=== PATIENT | male | born 1965 | race Caucasian/White ===

== ENCOUNTER 2016-09-24 12:11 | Observation (INO) | payer OTHER ==
[~2016-09-24] VITALS: Ht 177.8 cm; Wt 90.0 kg
[~2016-09-24 12:11] MED LIST: ALLO100T PO; ATOR1TAB18 PO; COUM4TAB PO; TETA1INJ4 IM; TRAZ100T4 PO; WARF-60 PO
[2016-09-24 12:24] VITALS: BP 128/92; PULSE 120; RESP 20; TEMP 102.3; O2SAT 95
[2016-09-24] MEDS ORDERED: AZITHROMYCIN INJ 500 MG in SODIUM CHLOR 0.9% 250 ML INJ 250 ML IV STA (12:35)
[2016-09-24] MEDS ORDERED: SODIUM CHLOR 0.9% 1000 ML INJ 1,000 ML IV ONE ×2 (12:35)
[2016-09-24] MEDS ORDERED: cefTRIAXone INJ 2,000 MG in SODIUM CHLORIDE 0.9% INJ 100 ML IV STA (12:35)
[2016-09-24 12:46] VITALS: O2SAT 95
[2016-09-24 12:54] LABS: AUTOMATED NEUTROPHIL # 7.8 TH/MM3 (1.8-7.7); BASOPHIL % 0.5 % (0.0-2.0); HEMATOCRIT 46.9 % (39.0-51.0); HEMO FLAGS DIFF FINAL; LYMPH % 7.9 % (9.0-44.0); LYMPHOCYTE # 0.8 TH/MM3 (1.0-4.8); MEAN CELL VOLUME 93.5 FL (80.0-100.0); MEAN CORPUSCULAR HEMOGLOBIN 31.2 PG (27.0-34.0); MEAN CORPUSCULAR HGB CONC 33.4 % (32.0-36.0); MONO % 9.9 % (0.0-8.0); NEUT % 81.7 % (16.0-70.0); PLATELET COUNT 254 TH/MM3 (150-450); RED BLOOD COUNT 5.02 MIL/MM3 (4.50-5.90); RED CELL DISTRIBUTION WIDTH 12.4 % (11.6-17.2); WHITE BLOOD COUNT 9.6 TH/MM3 (4.0-11.0)
--- NOTE | 2016-09-24 13:02 | RADHPO ---
EXAM DATE/TIME: 09/24/2016 12:48 [place] COMPARISON: No previous studies available for comparison. INDICATIONS : Short of breath MEDICAL HISTORY : None. SURGICAL HISTORY : None. ENCOUNTER: Initial ACUITY: 2 days PAIN SCORE: 2/10 LOCATION: Bilateral chest FINDINGS: A single view of the chest demonstrates the lungs to be symmetrically aerated without evidence of mas s, infiltrate or effusion. The cardiomediastinal contours are unremarkable. Osseous structures are intact. CONCLUSION: 1. No acute cardiopulmonary disease. Xander Patel MD on September 24, 2016 at 13:01 Board Certified Radiologist. This report was verified electronically.
[2016-09-24 13:03] LABS: CHLORIDE 102 MEQ/L (98-107); POTASSIUM 3.9 MEQ/L (3.5-5.1); SODIUM (NA) 139 MEQ/L (136-145)
[2016-09-24 13:07] LABS: ANION GAP 9 MEQ/L (5-15); BLOOD UREA NITROGEN 9 MG/DL (7-18); MAGNESIUM 1.7 MG/DL (1.5-2.5)
[2016-09-24 13:08] VITALS: BP 128/92; PULSE 113; RESP 17; TEMP 102.3; O2SAT 96
[2016-09-24 13:08] LABS: APTT (PATIENT) 44.3 SEC (24.3-30.1); INTERNATIONAL NORMALIZED RATIO 1.7 RATIO; PROTHROMBIN TIME - PATIENT 19.2 SEC (9.8-11.6)
[2016-09-24 13:10] LABS: ALT (GPT) 23 U/L (12-78); AST (GOT) 50 U/L (15-37); GLOMERULAR FILTRATION RATE 89 ML/MIN (>89)
[2016-09-24 13:11] LABS: TOTAL BILIRUBIN ADULT 0.6 MG/DL (0.2-1.0)
[2016-09-24 13:13] LABS: ALKALINE PHOSPHATASE 89 U/L (45-117)
[2016-09-24 13:25] LABS: CREATINE KINASE 1480 U/L (39-308)
[2016-09-24 13:38] LABS: CKMB 1.6 NG/ML (0.5-3.6)
[2016-09-24] MEDS ORDERED: OSELTAMIVIR PHOSPHATE 75 MG CAP PO ONE ×2 (14:00→18:30)
[2016-09-24] MEDS ORDERED: IBUPROFEN 600 MG TAB PO ONE (14:00)
[2016-09-24] MEDS ORDERED: ACETAMINOPHEN 325 MG TAB PO ONE (14:00)
[2016-09-24 14:40] VITALS: BP 126/70; PULSE 102; RESP 17; TEMP 99.6; O2SAT 93
--- NOTE | 2016-09-24 15:45 | PD ---
HPI Chief Complaint: Cold / Flu Symptoms Time Seen by Provider: 12:31 Travel History International Travel<30 days: No Contact w/Intl Traveler<30days: No Traveled to known affect area: No History of Present Illness HPI 51-year-old male presents with cough and congestion over the past 3 days. He went to an urgent care who referred him here given his oxygen saturation initially was 88%. He states that he aches all over and is been running fever. He states he did not get a flu shot this year. He denies other concurrent complaints. He states he last had his INR checked a couple weeks ago and it was 2.1. He states he is on this for prior strokes. Quality is achy. Severity is all over. PFSH Past Medical History Hx Anticoagulant Therapy: Yes (WARAFIN) Arthritis: Yes (KNEES, ANKLES, ELBOWS) Cardiovascular Problems: Yes High Cholesterol: Yes Chest Pain: Yes Cerebrovascular Accident: Yes (AUG 2014 RIGHT FINGER NUMBNESS) Diminished Hearing: No Gastrointestinal Disorders: Yes Genitourinary: No Hiatal Hernia: Yes Hypertension: No Implanted Vascular Access Dvce: No Musculoskeletal: Yes (GOUT IN SHOULDER) Neurologic: Yes (CVA 2014) Respiratory: Yes (SMOKERS COUGH, ) Immunizations Current: Yes Myocardial Infarction: Yes Seizures: Yes (QUESTIONABLE IN THE PAST) Tetanus Vaccination: < 5 Years Influenza Vaccination: Yes Past Surgical History Abdominal Surgery: Yes (UMBILICIAL HERNIA, 20 YEARS AGO) Oral Surgery: Yes (IMPLANTED TOOTH) Other Surgery: Yes Social History Alcohol Use: Yes (OCC BEER) Tobacco Use: No (QUIT 09/2016) Substance Use: No Allergies-Medications (Allergen,Severity, Reaction): Coded Allergies: No Known Allergies (Verified , 09/24/16) Reported Meds & Prescriptions Reported Meds & Active Scripts Active Atorvastatin (Atorvastatin Calcium) 80 Mg Tab 80 Mg PO HS Warfarin 6 Mg Tab 6 Mg PO DAILY Reported Trazodone (Trazodone HCl) 100 Mg Tab 100 Mg PO TID Coumadin (Warfarin) 4 Mg Tab 4 Mg PO DAILY Allopurinol 100 Mg Tab 100 Mg PO DAILY Review of Systems Except as stated in HPI: all other systems reviewed are Neg Physical Exam Narrative GENERAL: Well-nourished, well-developed patient. SKIN: Warm and dry. HEAD: Normocephalic and atraumatic. EYES: No injection or drainage. ENT: No nasal drainage noted. NECK: Supple, trachea midline. CARDIOVASCULAR: Regular rate and rhythm RESPIRATORY: Breath sounds equal bilaterally at apices. No accessory muscle use. GASTROINTESTINAL: Abdomen soft, non-tender, nondistended. EXTREMITIES: No edema. NEUROLOGICAL: Awake and alert. Motor and sensory grossly within normal limits. Normal speech. Data Data Last Documented VS Vital Signs Date Time Temp Pulse Resp B/P Pulse Ox O2 Delivery O2 Flow Rate FiO2 09/24/16 13:08 102.3 113 17 128/92 96 Nasal Cannula 2 Orders Electrocardiogram (09/24/16 12:35) Complete Blood Count With Diff (09/24/16 12:35) Comprehensive Metabolic Panel (09/24/16 12:35) Prothrombin Time / Inr (Pt) (09/24/16 12:35) Act Partial Throm Time (Ptt) (09/24/16 12:35) Lactic Acid Sepsis Protocol (09/24/16 12:35) Magnesium (Mg) (09/24/16 12:35) Phosphorus (Po4) (09/24/16 12:35) Ckmb (Isoenzyme) Profile (09/24/16 12:35) Troponin I (09/24/16 12:35) Urinalysis - C+S If Indicated (09/24/16 12:35) Influenzae A/B Antigen (09/24/16 12:35) Blood Culture (09/24/16 12:35) Chest, Single Ap (09/24/16 12:35) Blood Glucose (09/24/16 12:35) Ecg Monitoring (09/24/16 12:35) Iv Access Insert/Monitor (09/24/16 12:35) Oximetry (09/24/16 12:35) Oxygen Administration (09/24/16 12:35) Ceftriaxone Inj (Rocephin Inj) (09/24/16 12:35) Azithromycin Inj (Zithromax Inj) (09/24/16 12:35) Sodium Chlor 0.9% 1000 Ml Inj (Ns 1000 M (09/24/16 12:35) Sodium Chlor 0.9% 1000 Ml Inj (Ns 1000 M (09/24/16 12:35) CKMB (09/24/16 12:40) CKMB% (09/24/16 12:40) Oseltamivir (Tamiflu) (09/24/16 14:00) Acetaminophen (Tylenol) (09/24/16 14:00) Ibuprofen (Motrin) (09/24/16 14:00) Admit Order (Ed Use Only) (09/24/16 13:54) Labs Laboratory Tests Test 09/24/16 12:40 White Blood Count 9.6 TH/MM3 Red Blood Count 5.02 MIL/MM3 Hemoglobin 15.7 GM/DL Hematocrit 46.9 % Mean Corpuscular Volume 93.5 FL Mean Corpuscular Hemoglobin 31.2 PG Mean Corpuscular Hemoglobin 33.4 % Concent Red Cell Distribution Width 12.4 % Platelet Count 254 TH/MM3 Mean Platelet Volume 7.2 FL Neutrophils (%) (Auto) 81.7 % Lymphocytes (%) (Auto) 7.9 % Monocytes (%) (Auto) 9.9 % Eosinophils (%) (Auto) 0.0 % Basophils (%) (Auto) 0.5 % Neutrophils # (Auto) 7.8 TH/MM3 Lymphocytes # (Auto) 0.8 TH/MM3 Monocytes # (Auto) 1.0 TH/MM3 Eosinophils # (Auto) 0.0 TH/MM3 Basophils # (Auto) 0.0 TH/MM3 CBC Comment DIFF FINAL Differential Comment Prothrombin Time 19.2 SEC Prothromb Time International 1.7 RATIO Ratio Activated Partial 44.3 SEC Thromboplast Time Sodium Level 139 MEQ/L Potassium Level 3.9 MEQ/L Chloride Level 102 MEQ/L Carbon Dioxide Level 28.0 MEQ/L Anion Gap 9 MEQ/L Blood Urea Nitrogen 9 MG/DL Creatinine 0.89 MG/DL Estimat Glomerular Filtration 89 ML/MIN Rate Random Glucose 107 MG/DL Lactic Acid Level 1.7 mmol/L Calcium Level 8.7 MG/DL Phosphorus Level 2.9 MG/DL Magnesium Level 1.7 MG/DL Total Bilirubin 0.6 MG/DL Aspartate Amino Transf 50 U/L (AST/SGOT) Alanine Aminotransferase 23 U/L (ALT/SGPT) Alkaline Phosphatase 89 U/L Total Creatine Kinase 1480 U/L Creatine Kinase MB 1.6 NG/ML Creatine Kinase MB % 0.1 % Troponin I LESS THAN 0.02 NG/ML Total Protein 7.6 GM/DL Albumin 3.4 GM/DL MDM Medical Decision Making Medical Screen Exam Complete: Yes Emergency Medical Condition: Yes Medical Record Reviewed: Yes (pmh confirmed) Interpretation(s) CBC & BMP Diagram 09/24/16 12:40 Last 24 hours Impressions Chest X-Ray 09/24/16 1235 Signed Impressions: Service Date/Time: Saturday, September 24, 2016 12:48 - CONCLUSION: 1. No acute cardiopulmonary disease. Xander Patel MD Differential Diagnosis sepsis, pneumonia, influenza, acute renal failure.... Narrative Course Will check blood work, chest x-ray, influenza and dose with IV fluids and reevaluate. Initially dose with Rocephin and azithromycin to cover for possible pneumonia source Patient will be given Tylenol and Motrin for fever and IV fluids will be repeated. Tamiflu will be given for influenza and he'll need to stay in the hospital for continued IV fluids and care. He agrees to this plan Sepsis Criteria SIRS Criteria (2 or more): Temp > 100.9 or < 96.8, Heart rate over 90 Sepsis Criteria (SIRS+source): Infect source susp/known Physician Communication Physician Communication dr huynh initially declined admission given patient's lactate is normal and is not hypotensive and that he could be treated outpatient for influenza after given meds to improve heart rate Dr. Huynh called back and then agreed to observation only Diagnosis Primary Impression: Sepsis Qualified Code: A41.9 - Sepsis, due to unspecified organism Additional Impressions: Influenza A Rhabdomyolysis Qualified Code: M62.82 - Non-traumatic rhabdomyolysis Admitting Information Admitting Physician Requests: Observation Elizabeth Acosta MD Sep 24, 2016 15:45
[2016-09-24] MEDS ORDERED: NALOXONE HCL 0.4 MG/ML AMP IV PRN (16:45)
[2016-09-24] MEDS ORDERED: ONDANSETRON HCL 4 MG/2 ML VIAL IVP PRN (16:45)
[2016-09-24] MEDS ORDERED: SODIUM CHLORIDE 0.9% FLUSH 5 ML FLUSH FLUSH PRN (16:45)
[2016-09-24] MEDS ORDERED: TEMAZEPAM 15 MG CAP PO PRN (16:45)
[2016-09-24 17:39] VITALS: BP 113/68; PULSE 93; RESP 18; TEMP 98.3; O2SAT 93
--- NOTE | 2016-09-24 17:53 | HHI.HP ---
[facility]ician Lindsay Vargas MD Admission Diagnosis sepsis, flu Diagnoses: (1) Fever Diagnosis: Principal (2) Cough Diagnosis: Principal (3) Influenza A Chief Complaint: Fever and cough Travel History International Travel<30 Days: No Contact w/Intl Traveler <30 Da: No Traveled to Known Affected Are: No History of Present Illness 51-year-old male with known history of hyperlipidemia, history of CVA who presented to the hospital because of fever, cough and congestion. Patient states her last 2 days he has noticed he had a fever. He has been using Mucinex [id number] for his cough without any significant improvement. Patient states it is really eat cough without any production. Sometimes coughing until he vomits. Patient did not get any better so he came to emergency department for evaluation. Patient on presentation had a fever of 102.3. Tachycardia 113. Influenza testing was performed which patient is positive for influenza A. At the time evaluating the patient he is now afebrile after one Tylenol. Patient feels much better and wants to go home. Patient does not want to be admitted the hospital for continued care and management. I counseled patient extensively on use of Tylenol/Advil for fever control. Symptomatic relief with [id number] medications to include Mucinex DM, NyQuil, DayQuil, Tylenol cold. Review of Systems Constitutional: COMPLAINS OF: Fever, DENIES: Diaphoretic episodes, Fatigue, Weight gain, Weight loss, Chills, Dizziness, Change in appetite, Night Sweats Eyes: DENIES: Blurred vision, Diplopia, Eye inflammation, Eye pain, Vision loss , Double Vision Ears, nose, mouth, throat: DENIES: Vertigo, Nasal discharge, Throat pain, Ear Pain, Running Nose, Sinus Pain Respiratory: COMPLAINS OF: Cough, DENIES: Apneas, Snoring, Wheezing, Hemoptysis, Sputum production, Shortness of breath Cardiovascular: DENIES: Chest pain, Palpitations, Syncope, Dyspnea on Exertion , Lower Extremity Edema, Orthopnea Gastrointestinal: DENIES: Abdominal pain, Black stools, Bloody stools, Constipation, Diarrhea, Nausea, Vomiting, Difficulty Swallowing, Anorexia Neurologic: DENIES: Abnormal gait, Headache, Localized weakness, Paresthesias, Seizures, Speech Problems, Tremor, Poor Balance Psychiatric: DENIES: Anxiety, Confusion, Mood changes, Depression Past Family Social History Past Medical History Hyperlipidemia History of CVA Doubt Past Surgical History Umbilical hernia repair Reported Medications Reported Meds & Active Scripts Active Atorvastatin (Atorvastatin Calcium) 80 Mg Tab 80 Mg PO HS Warfarin 6 Mg Tab 6 Mg PO DAILY Reported Trazodone (Trazodone HCl) 100 Mg Tab 100 Mg PO TID Coumadin (Warfarin) 4 Mg Tab 4 Mg PO DAILY Allopurinol 100 Mg Tab 100 Mg PO DAILY Allergies: Coded Allergies: No Known Allergies (Verified , 09/24/16) Family History Reviewed is significant for mother having myocardial infarction Social History Patient quit smoking 2 weeks ago, prior to that he smoked one pack a cigarettes a day since he was teenager. Patient takes alcohol occasionally. Denies any illicit drugs Physical Exam Vital Signs Vital Signs Date Time Temp Pulse Resp B/P Pulse Ox O2 Delivery O2 Flow Rate FiO2 09/24/16 17:39 98.3 93 18 113/68 93 Room Air 09/24/16 17:14 97 97 Nasal Cannula 2 09/24/16 14:40 99.6 102 17 126/70 93 Room Air 09/24/16 13:08 102.3 113 17 128/92 96 Nasal Cannula 2 09/24/16 12:53 112 96 Nasal Cannula 2 09/24/16 12:47 97 Nasal Cannula 2 09/24/16 12:46 95 Room Air 09/24/16 12:24 102.3 120 20 128/92 95 Physical Exam GENERAL: Well-developed, well-nourished, in no acute distress. alert and orientated HEENT: Head is normocephalic without any lesions or masses noted. Facial features are symmetric. Eyes: Pupils equal round reactive to light. Extraocular muscles are intact. Conjunctivae were clear. Oropharyngeal: Pharynx without any erythema edema. Tongue is midline without deviation. Buccal mucosa is moist without any masses or lesions NECK: Supple without any masses. Trachea midline no deviation. No JVD, no bruits are appreciated CARDIAC: Regular rhythm, regular rate. S1/S2 are heard. No murmurs gallops or rubs. LUNGS: Clear to auscultation bilaterally. No wheeze, rhonchi or rales. No use of accessory muscles on inspiration or expiration. ABDOMEN: Soft, nontender. Nondistended. Bowel sounds heard in all 4 quadrants. No organomegaly or masses. Negative rebound, negative guarding EXTREMITIES: No edema, pulses are equal bilaterally. No cyanosis or clubbing NEUROLOGY: Mood and affect appear appropriate. Cranial nerves II through XII grossly intact. Muscle strength 5/5 in upper and lower extremities bilaterally. Deep tendon reflexes are 2+ in upper and lower extremities bilaterally. Laboratory Laboratory Tests Test 09/24/16 12:40 White Blood Count 9.6 Red Blood Count 5.02 Hemoglobin 15.7 Hematocrit 46.9 Mean Corpuscular Volume 93.5 Mean Corpuscular Hemoglobin 31.2 Mean Corpuscular Hemoglobin 33.4 Concent Red Cell Distribution Width 12.4 Platelet Count 254 Mean Platelet Volume 7.2 Neutrophils (%) (Auto) 81.7 Lymphocytes (%) (Auto) 7.9 Monocytes (%) (Auto) 9.9 Eosinophils (%) (Auto) 0.0 Basophils (%) (Auto) 0.5 Neutrophils # (Auto) 7.8 Lymphocytes # (Auto) 0.8 Monocytes # (Auto) 1.0 Eosinophils # (Auto) 0.0 Basophils # (Auto) 0.0 CBC Comment DIFF FINAL Differential Comment Prothrombin Time 19.2 Prothromb Time International 1.7 Ratio Activated Partial 44.3 Thromboplast Time Sodium Level 139 Potassium Level 3.9 Chloride Level 102 Carbon Dioxide Level 28.0 Anion Gap 9 Blood Urea Nitrogen 9 Creatinine 0.89 Estimat Glomerular Filtration 89 Rate Random Glucose 107 Lactic Acid Level 1.7 Calcium Level 8.7 Phosphorus Level 2.9 Magnesium Level 1.7 Total Bilirubin 0.6 Aspartate Amino Transf 50 (AST/SGOT) Alanine Aminotransferase 23 (ALT/SGPT) Alkaline Phosphatase 89 Total Creatine Kinase 1480 Creatine Kinase MB 1.6 Creatine Kinase MB % 0.1 Troponin I LESS THAN 0.02 Total Protein 7.6 Albumin 3.4 Date/Time Procedure Status Source Growth 09/24/16 13:15 Influenza Types A,B Antigen (ELIZABETH) - Final Complete Nasal Aspirate Positive For Flu A Antigen 09/24/16 12:45 Aerobic Blood Culture Received Blood Peripheral Pending 09/24/16 12:45 Anaerobic Blood Culture Received Blood Peripheral Pending Result Diagram: 09/24/16 1240 09/24/16 1240 Imaging Last Impressions Chest X-Ray 09/24/16 1235 Signed Impressions: Service Date/Time: Saturday, September 24, 2016 12:48 - CONCLUSION: 1. No acute cardiopulmonary disease. Xander Patel MD Septic Shock Reassessment Heart: Regular rate and rhythm Lungs: Clear Skin: Warm, Moist Peripheral Pulses: Bounding Right Radial Bounding Left Radial Capillary Refill: Brisk, <2 seconds Assessment and Plan Assessment and Plan Influenza A infection presenting with febrile illness, tachycardia: Improved Continue Tamiflu Counseled patient on supportive measures at home with Tylenol, Advil, Mucinex DM, DayQuil, NyQuil cXR NEGATIVE FOR PNEUMONIA - PT STABLE ON RA, NO DYSPNEA - WANTS TO GO HOME. PATIENT AND HIS COUNSELED TO R/T ED FOR DYSPNEA, OR IF UNABLE TO KEEP MEDS DOWN, OR FOR ANY FURTHER CONCERNS. OFFERED TO OBSERVE PATIENT OVERNIGHT HOWEVER HE WOULD LIKE TO GO HOME. History CVA Continue anticoagulation Hyperlipidemia Continue statin DVT prevention Patient anticoagulated on Coumadin Written by Ever Lentz PA-C, acting as scribe for Dr. Huynh on 09/24/16 at 1800. The documentation accurately reflects the work and decisions performed face-to- face by Dr. Huynh on 09/24/16 at 1800 Discharge disposition Discharge home in stable condition Activity: Ad danielle Diet: Healthy heart diet Medications per medication reconciliation Follow-up primary medical doctor one week. Problem Qualifiers (1) Fever: Qualified Code: R50.9 - Fever, unspecified fever cause Ever Lentz Sep 24, 2016 17:53 Debby Huynh MD Sep 24, 2016 19:49
[2016-09-24] MEDS ORDERED: OSEL75 PO (17:54)
--- NOTE | 2016-09-24 17:54 | HHI.DCPOC ---
Discharge Care Plan Diagnosis: (1) Fever (2) Cough (3) Influenza A Goals to Promote Your Health * To prevent worsening of your condition and complications * To maintain your health at the optimal level Directions to Meet Your Goals Take your medications as prescribed Follow your dietary instruction Follow activity as directed Keep your appointments as scheduled Take your immunizations and boosters as scheduled If your symptoms worsen call your PCP, if no PCP go to Urgent Care Center or Emergency Room Smoking is Dangerous to Your Health. Avoid second hand smoke Call the 24-hour hour crisis hotline for domestic abuse at Ever Lentz Sep 24, 2016 17:54
[2016-09-24] MEDS ORDERED: ACETAMINOPHEN 325 MG TAB PO SCH (19:00)
[2016-09-24] MEDS ORDERED: SODIUM CHLORIDE 0.9% FLUSH 5 ML FLUSH FLUSH SCH (21:00)
[2016-09-24] MEDS ORDERED: OSELTAMIVIR PHOSPHATE 75 MG CAP PO SCH (21:00)
[2016-09-25] MEDS ORDERED: WARF-60 PO (18:07)
--- NOTE | 2016-09-25 21:21 | EKG ---
Date Performed: 09/24/2016 Time Performed: 12:58:16 PTAGE: 51 years EKG: Sinus tachycardia Normal ECG except for rate PREVIOUS TRACING : 06/09/2016 09.43 DOCTOR: Javan Tai Interpretating Date/Time 09/25/2016 21:10:46
[2016-10-29] MEDS ORDERED: ATOR1TAB18 PO (18:07)
[2016-10-31] MEDS ORDERED: HYDR-3516 PO (15:50)
[2016-12-01] MEDS ORDERED: ALLO100T PO (16:42)
[2016-12-26] MEDS ORDERED: ATOR1TAB18 PO (18:20)
== END 2016-09-24 18:58 | disposition home or self-care (01) ==
LOC: PHED 12:11 → PHEDA 13:57 → INTOOBSV 13:57 → PHEDH 17:57
PROVIDERS: ADMIT Family Medicine; ATTEND Family Medicine
DX: A41.9 Sepsis, unspecified organism (principal); J10.1 Influenza due to other identified influenza virus with other respiratory manifestations; M62.82 Rhabdomyolysis; Z86.73 Personal history of transient ischemic attack (TIA), and cerebral infarction without residual deficits; Z79.01 Long term (current) use of anticoagulants; E78.00 Pure hypercholesterolemia, unspecified; R07.9 Chest pain, unspecified; K44.9 Diaphragmatic hernia without obstruction or gangrene; I25.2 Old myocardial infarction; R56.9 Unspecified convulsions; Z79.899 Other long term (current) drug therapy; E78.5 Hyperlipidemia, unspecified; Z87.891 Personal history of nicotine dependence; R00.0 Tachycardia, unspecified
CPT/HCPCS: 71010; 80053; 82550; 82552; 83605; 83735; 84100; 84484; 85025; 85610; 85730; 87040; 87804; 93005; 94620; 96365; 99285; G0378; J0456; J0696; J7030; J7050

== ENCOUNTER 2017-02-27 13:33 | Emergency (ER) | payer OTHER ==
[~2017-02-27] VITALS: Ht 177.8 cm; Wt 91.0 kg
[~2017-02-27 13:33] MED LIST changes: +HYDR-3516 PO; +OSEL75 PO
[2017-02-27 13:37] VITALS: BP 148/85; PULSE 125; RESP 15; TEMP 98; O2SAT 98
[2017-02-27 13:45] VITALS: PULSE 106
[2017-02-27] MEDS ORDERED: TRAZ100T6 PO (13:59)
[2017-02-27] MEDS ORDERED: METO25TA3 PO (13:59)
[2017-02-27] MEDS ORDERED: PLAV75TA29 PO (13:59)
[2017-02-27] MEDS ORDERED: ASPI81CH CHEW (13:59)
[2017-02-27] MEDS ORDERED: METO100T PO (13:59)
--- NOTE | 2017-02-27 14:11 | PD ---
HPI Chief Complaint: Cardiac Complaint Time Seen by Provider: 13:48 Travel History International Travel<30 days: No Contact w/Intl Traveler<30days: No Traveled to known affect area: No History of Present Illness HPI The 51-year-old man who presents to the emergency department complaining of rapid heart rate and palpitations. He states symptoms started about 30 minutes ago. He's been under a lot of stress. He states he has a history of CAD, CVA. Review of records shows that he was felt to have a cardioembolic CVA in the been hunting for a cold A. fib. The Vicodin of a loop recorder. He was on warfarin falling the CVA. As far as I can tell is never been diagnosed with A. fib. He was feeling generally well before this happened. He states his heart rate was up and he felt his pulse and it was rapid. No chest pain. No shortness of breath. No other complaints. History Past Medical History Narrative Medical CAD, stent CVA Back pain Hyperlipidemia Tetanus Vaccination: < 5 Years Influenza Vaccination: Yes Social History Alcohol Use: Yes (OCC BEER) Tobacco Use: Yes (just one today, quit in sep 2016) Allergies-Medications (Allergen,Severity, Reaction): Coded Allergies: No Known Allergies (Verified , 02/27/17) Reported Meds & Prescriptions Reported Meds & Active Scripts Active Atorvastatin (Atorvastatin Calcium) 80 Mg Tab 80 Mg PO HS Allopurinol 100 Mg Tab 100 Mg PO DAILY Reported Trazodone (Trazodone HCl) 100 Mg Tablet 100 Mg PO HS Metoprolol Tartrate 100 Mg Tab 100 Mg PO DAILY Metoprolol Tartrate 25 Mg Tab 25 Mg PO BID Plavix (Clopidogrel Bisulfate) 75 Mg Tab 75 Mg PO HS Aspirin 81 Mg Chew 81 Mg CHEW DAILY Hydrocodone-Acetaminophen 5-325 mg Tab 1 Tab PO Q6H PRN Review of Systems Except as stated in HPI: all other systems reviewed are Neg Physical Exam Narrative GENERAL: Well-appearing 51-year-old man, no acute distress. SKIN: Focused skin assessment warm/dry. HEAD: Atraumatic. Normocephalic. EYES: Pupils equal and round. No scleral icterus. No injection or drainage. ENT: No nasal bleeding or discharge. Mucous membranes pink and moist. NECK: Trachea midline. No JVD. CARDIOVASCULAR: Regular rate and rhythm. No murmur appreciated. RESPIRATORY: No accessory muscle use. Clear to auscultation. Breath sounds equal bilaterally. GASTROINTESTINAL: Abdomen soft, non-tender, nondistended. Hepatic and splenic margins not palpable. MUSCULOSKELETAL: No obvious deformities. No clubbing. No cyanosis. No edema. NEUROLOGICAL: Awake and alert. No obvious cranial nerve deficits. Motor grossly within normal limits. Normal speech. PSYCHIATRIC: Appropriate mood and affect; insight and judgment normal. Data Data Last Documented VS Vital Signs Date Time Temp Pulse Resp B/P Pulse Ox O2 Delivery O2 Flow Rate FiO2 02/27/17 14:20 84 18 131/84 99 Room Air 02/27/17 13:37 98.0 Orders Complete Blood Count With Diff (02/27/17 14:04) Basic Metabolic Panel (Bmp) (02/27/17 14:04) Electrocardiogram (02/27/17 13:49) Labs Laboratory Tests Test 02/27/17 14:00 White Blood Count 11.8 TH/MM3 Red Blood Count 4.46 MIL/MM3 Hemoglobin 14.2 GM/DL Hematocrit 40.6 % Mean Corpuscular Volume 91.1 FL Mean Corpuscular Hemoglobin 32.0 PG Mean Corpuscular Hemoglobin 35.1 % Concent Red Cell Distribution Width 12.3 % Platelet Count 297 TH/MM3 Mean Platelet Volume 7.0 FL Neutrophils (%) (Auto) 72.6 % Lymphocytes (%) (Auto) 19.6 % Monocytes (%) (Auto) 6.3 % Eosinophils (%) (Auto) 1.1 % Basophils (%) (Auto) 0.4 % Neutrophils # (Auto) 8.6 TH/MM3 Lymphocytes # (Auto) 2.3 TH/MM3 Monocytes # (Auto) 0.7 TH/MM3 Eosinophils # (Auto) 0.1 TH/MM3 Basophils # (Auto) 0.0 TH/MM3 CBC Comment DIFF FINAL Differential Comment Sodium Level 143 MEQ/L Potassium Level 3.7 MEQ/L Chloride Level 110 MEQ/L Carbon Dioxide Level 24.9 MEQ/L Anion Gap 8 MEQ/L Blood Urea Nitrogen 13 MG/DL Creatinine 0.85 MG/DL Estimat Glomerular Filtration 94 ML/MIN Rate Random Glucose 110 MG/DL Calcium Level 9.0 MG/DL [facility] Medical Decision Making Medical Screen Exam Complete: Yes Emergency Medical Condition: Yes Interpretation(s) My review of EKG: Sinus tachycardia 103, normal axis, normal intervals, no acute ischemia. CBC remarkable for mildly elevated white count. Differential Diagnosis Arrhythmia, stress, adverse effect of chlorpheniramine, other Narrative Course Medical decision making INITIAL 51-year-old man who presents to the emergency department complaining of rapid heart rate. There is some suspicion he may have occult A. fib because of his previous stroke. He looks well now. Is in sinus rhythm. He took or pheniramine which may be contributing. He also is very anxious and under a lot of stress. Overall he looks well. We'll check labs, monitor him on the monitor , recommend outpatient follow-up. He is due to get a loop recorder. Diagnosis Primary Impression: Palpitations Additional Instructions: Drink plenty of fluids stay well-hydrated. Follow-up with her primary doctor in the next 2-4 days. Return to the emergency department for any new or worsening symptoms. Med/Other Pt SpecificInfo: No Change to Meds Disposition: 01 DISCHARGE HOME Condition: Stable Lino Stafford MD Feb 27, 2017 14:11
[2017-02-27 14:20] VITALS: BP 131/84; PULSE 84; RESP 18; O2SAT 99
[2017-02-27 14:21] LABS: AUTOMATED NEUTROPHIL # 8.6 TH/MM3 (1.8-7.7); BASOPHIL % 0.4 % (0.0-2.0); EOSINOPHIL # 0.1 TH/MM3 (0-0.4); EOSINOPHIL % 1.1 % (0.0-4.0); HEMATOCRIT 40.6 % (39.0-51.0); HEMO FLAGS DIFF FINAL; LYMPH % 19.6 % (9.0-44.0); LYMPHOCYTE # 2.3 TH/MM3 (1.0-4.8); MEAN CELL VOLUME 91.1 FL (80.0-100.0); MEAN CORPUSCULAR HGB CONC 35.1 % (32.0-36.0); MONO % 6.3 % (0.0-8.0); NEUT % 72.6 % (16.0-70.0); PLATELET COUNT 297 TH/MM3 (150-450); RED BLOOD COUNT 4.46 MIL/MM3 (4.50-5.90); RED CELL DISTRIBUTION WIDTH 12.3 % (11.6-17.2); WHITE BLOOD COUNT 11.8 TH/MM3 (4.0-11.0)
[2017-02-27 14:30] LABS: POTASSIUM 3.7 MEQ/L (3.5-5.1)
[2017-02-27 14:36] LABS: BICARBONATE 24.9 MEQ/L (21.0-32.0)
[2017-02-27 15:25] VITALS: BP 111/68
--- NOTE | 2017-02-28 12:03 | EKG ---
Date Performed: 02/27/2017 Time Performed: 13:49:56 PTAGE: 51 years EKG: SINUS TACHYCARDIA Since previous tracing, no significant change noted ABNORMAL RHYTHM ECG PREVIOUS TRACING : 09/24/2016 12.58 DOCTOR: Xander Mayberry Interpretating Date/Time 02/28/2017 12:02:14
== END 2017-02-27 15:26 | disposition home or self-care (01) ==
LOC: PHED 13:33
DX: R00.2 Palpitations (principal); R94.31 Abnormal electrocardiogram [ECG] [EKG]; E78.5 Hyperlipidemia, unspecified; Z72.0 Tobacco use; Z86.79 Personal history of other diseases of the circulatory system; Z87.39 Personal history of other diseases of the musculoskeletal system and connective tissue
CPT/HCPCS: 80048; 85025; 93005